=== PATIENT | male | born 2000 | race Caucasian/White ===

== ENCOUNTER 2022-08-04 17:50 | Emergency (ER) | payer BC ==
[2022-08-04 17:56] VITALS: BP 124/66; PULSE 92; RESP 18; TEMP 97.8; BMI 27.4
[2022-08-04] MEDS ORDERED: ALBUTEROL SO4 2.5/IPRATROPIUM 0.5 INH SOL 3 ML VIAL.NEB. NEB ONE ×2 (18:11→18:34)
== END 2022-08-04 20:47 | disposition home or self-care (01) ==
LOC: JERFT 17:50
PROC: 3E0F7GC Introduction of Other Therapeutic Substance into Respiratory Tract, Via Natural or Artificial Opening (ICD-10-PCS; principal; 2022-08-04)
DX: R06.02 Shortness of breath (principal); Z20.822 Contact with and (suspected) exposure to COVID-19
CPT/HCPCS: 0241U-QW; 99283-25